=== PATIENT | male | born 1980 | race Caucasian/White ===

== ENCOUNTER 2018-04-21 11:30 | Emergency (ER) | payer OTHER ==
[2018-04-21] MEDS ORDERED: TDAP VACCINE 0.5 ML SUS IM ONE ×2 (12:07→12:32)
[2018-04-21] MEDS ORDERED: LIDOCAINE HCL 2% (VISCOUS) 20 ML SOL ONE (12:08)
[2018-04-21] MEDS ORDERED: LIDOCAINE HCL 2% GEL TOP ONE (12:08)
[2018-04-21] MEDS ORDERED: LIDOCAINE HCL 2% (VISCOUS) 20 ML SOL MT ONE (12:08)
[2018-04-21 12:12] VITALS: O2SAT 98
[2018-04-21 12:44] VITALS: BP 151/88; PULSE 84; RESP 18; TEMP 98.4
== END 2018-04-21 13:00 | disposition home or self-care (01) | DRG 605 ==
LOC: ED 11:30
DX: S01.01XA Laceration without foreign body of scalp, initial encounter (principal)
CPT/HCPCS: 12002; 90471; 90715; 99283; A6402; A9270-GY